=== PATIENT | male | born 1990 | race African-American/Black ===

== ENCOUNTER 2017-07-23 13:20 | Emergency (ER) | payer MEDICAID ==
[~2017-07-23] VITALS: Ht 177.8 cm; Wt 82.0 kg
[2017-07-23] MEDS ORDERED: SODIUM CHLORIDE 0.9% 1,000 ML IV ONE ×2 (13:25)
[2017-07-23] MEDS ORDERED: PROPOFOL 10MG/ML 100ML 100 ML IV SCH (13:30)
[2017-07-23 13:41] VITALS: BP 154/88
[2017-07-23] MEDS ORDERED: ETOMIDATE 2MG/ML 10ML VIAL IV ONE ×2 (13:42→13:45)
[2017-07-23] MEDS ORDERED: SUCCINYLCHOLINE CHLORIDE 200MG/10ML VIAL IV ONE ×2 (13:42→13:45)
[2017-07-23] MEDS ORDERED: TETANUS, DIPHTHERIA, PERTUSSIS VAC/PF 0.5ML (>7YR OLD) IM ONE (13:45)
[2017-07-23 14:27] LABS: BASOPHILS % 0.7 % (0.0-2.0); EOSINOPHILS % 3.1 % (0.0-5.0); HEMATOCRIT. 48.9 % (42.0-52.0); LYMPHOCYTES % 45.2 % (20.0-50.0); MEAN CORPUSCULAR VOLUME 88.6 fL (80.0-94.0); MEAN PLATELET VOLUME 10.3 fl (7.4-10.4); MONOCYTES % 10.1 % (2.0-8.0); NEUTROPHILS % 40.9 % (40.0-76.0); PLATELET 262 x1000/uL (130-400); RED BLOOD CELL COUNT 5.52 mill/uL (4.7-6.1)
[2017-07-23 14:34] LABS: PROTHROMBIN TIME 10.8 sec (9.4-11.6)
[2017-07-23 14:39] LABS: CARBON DIOXIDE 26 mEq/L (21-32); CHLORIDE 106 mEq/L (98-107)
== END 2017-07-23 14:05 | disposition short-term general hospital (02) ==
LOC: ER 13:24 → EDBD 13:24 → ER 14:05
DX: S11.80XA Unspecified open wound of other specified part of neck, initial encounter (principal); Z87.828 Personal history of other (healed) physical injury and trauma; W32.0XXA Accidental handgun discharge, initial encounter; Y93.89 Activity, other specified; Y92.810 Car as the place of occurrence of the external cause
CPT/HCPCS: 31500; 36415; 51702; 71010; 80053; 85025; 85610; 90471; 90715; 94002; 99285; J0330; J2704; J3490; Z7610; J7030